=== PATIENT | male | born 2000 | race Hispanic/Latino ===

== ENCOUNTER 2020-11-26 18:19 | Emergency (ER) | payer SELFPAY ==
[~2020-11-26] VITALS: Ht 190.5 cm; Wt 106.6 kg
[2020-11-26 18:21] VITALS: BP 147/83
[2020-11-27] MEDS ORDERED: SULF1TAB42 PO (11:18)
== END 2020-11-26 21:00 | disposition left against medical advice (07) ==
LOC: EDH 18:19
DX: N50.812 Left testicular pain (principal); Z53.21 Procedure and treatment not carried out due to patient leaving prior to being seen by health care provider

== ENCOUNTER 2020-11-27 08:44 | Emergency (ER) | payer OTHER ==
[~2020-11-27] VITALS: Ht 190.5 cm; Wt 106.6 kg
[2020-11-27 08:46] VITALS: BP 123/83
[2020-11-27 10:11] LABS: APPEARANCE,URINE CLEAR (CLEAR); BILIRUBIN,URINE NEGATIVE (NEGATIVE); COLOR,URINE YELLOW (YELLOW); GLUCOSE, URINE (UA) NEGATIVE (NEGATIVE); KETONES,URINE NEGATIVE (NEGATIVE); LEUKOCYTE ESTERASE ,URINE NEGATIVE (NEGATIVE); NITRATE,URINE NEGATIVE (NEGATIVE); OCCULT BLOOD,URINE NEGATIVE (NEGATIVE); PROTEIN,URINE NEGATIVE (NEGATIVE); UROBILINOGEN,URINE 0.2 mg/dL (0.2-1.0)
[2020-11-27] MEDS ORDERED: SULF1TAB42 PO (11:18)
== END 2020-11-27 12:23 | disposition home or self-care (01) ==
LOC: EDH 08:44
DX: L72.3 Sebaceous cyst (principal); L08.9 Local infection of the skin and subcutaneous tissue, unspecified
CPT/HCPCS: 81003